=== PATIENT | female | born 1950 | race Caucasian/White ===

== ENCOUNTER → 2017-12-31 15:53 | Outpatient (CLI) | payer OTHER, MEDICARE, SELFPAY ==
[2017-12-31 17:06] LABS: Bacteria 0 SEEN /hpf (None Seen); Mucous, Urine 0 SEEN /hpf (<or=2+); Red Blood Cells-Urine 0 SEEN /hpf (0-5)
[2017-12-31 17:16] LABS: Color, Urine Straw (Yellow); Glucose, Dipstick Normal (Normal); Ketone-Dipstick Negative (Negative); Leukocyte Esterase-Dipstick 100 /ul (Negative); Nitrite-Dipstick Negative (Negative); Occult Blood-Urine 25 /ul (Negative); Protein-Dipstick Negative (Negative); Specific Gravity, Urine 1.005 (1.002-1.030); Urine Bilirubin Dipstick Negative (Negative); Urine Clarity Clear (Clear); Urine Urobilinogen Normal (Normal)
[2017-12-31 17:27] LABS: Squamous Epithelial Cells - UA 0-5 SEEN /hpf (5-10); White Blood Cells 0-5 SEEN /hpf (0-5)
== END ==
PROVIDERS: Visit Provider Physician Assistant Surgical
DX: N30.00 Acute cystitis without hematuria (principal)
CPT/HCPCS: 81001; 87086; 87088; 87186

== ENCOUNTER → 2019-07-28 14:26 | Outpatient (CLI) | payer MEDICARE, SELFPAY ==
[2019-07-28 10:05] VITALS: BMI 30.7
[2019-07-28 14:28] LABS: Mucous, Urine 0 SEEN /hpf (<or=2+)
[2019-07-28 15:23] LABS: Color, Urine Yellow (Yellow); Glucose, Dipstick Normal (Normal); Ketone-Dipstick 5 mg/dl (Negative); Leukocyte Esterase-Dipstick 500 /ul (Negative); Nitrite-Dipstick Positive (Negative); Occult Blood-Urine 250 /ul (Negative); Protein-Dipstick 30 mg/dl (Negative); Urine Bilirubin Dipstick Negative (Negative); Urine Clarity Cloudy (Clear); Urine Urobilinogen 1 mg/dl (Normal)
[2019-07-28 15:37] LABS: Bacteria 4+ /hpf (None Seen); Red Blood Cells-Urine 10-25 SEEN /hpf (0-5); Squamous Epithelial Cells - UA 0-5 SEEN /hpf (5-10); White Blood Cells 50-100 SEEN /hpf (0-5)
== END ==
PROVIDERS: Referring Provider Nurse Practitioner Family; Visit Provider Nurse Practitioner Family
DX: N30.01 Acute cystitis with hematuria (principal)
CPT/HCPCS: 81001; 87086; 87088; 87186

== ENCOUNTER → 2019-10-09 10:58 | Outpatient (CLI) | payer MEDICARE, SELFPAY ==
[2019-09-04 15:40] VITALS: BMI 30.9
--- NOTE | 2019-10-09 11:00 | MRI_ITS ---
STUDY: MRI RIGHT KNEE REASON FOR EXAM: Right knee pain for years, no specific injury. TECHNIQUE: Standardized fat and water weighted pulse sequences were obtained in all 3 orthogonal planes. COMPARISON: None. FINDINGS: There is tear/degeneration of the posterior horn and body of the medial meniscus (proton density sagittal images 29-36; proton density coronal images 13-17). There is peripheral subluxation of the medial meniscus. There is arthrosis of the medial femorotibial compartment with marginal osteophytes and chondral thinning (T2 sagittal image 17). There is slight subchondral bone edema of the medial femoral condyle and tibial plateau, a stress phenomenon. Normal medial collateral ligamentous complex (MCL). Normal distal semimembranosus, gracilis and semitendinosus tendons. There is a horizontal/oblique tear of the free margin of the body and anterior and posterior horns of the lateral meniscus (proton density sagittal images 8-11; proton density coronal images 12-17). Normal hyaline cartilage of the lateral femorotibial compartment. There are small marginal osteophytes of the lateral femoral condyle. Normal lateral femoral condyle and tibial plateau. Normal proximal tibiofibular articulation. Normal lateral collateral (fibular) ligament. Normal popliteus tendon. Normal biceps femoris tendon. Normal anterior cruciate ligament (ACL). Normal posterior cruciate ligament (PCL). Normal congruent patellofemoral articulation. Normal hyaline cartilage of the patellofemoral compartment. Normal medial and lateral patellar retinaculum. Normal quadriceps tendon. Normal patellar tendon. Normal Hoffa's fat pad. There is a very small joint effusion. There is a popliteal cyst measuring 8.1 cm in length (T2 sagittal images 13-20). There is mild prepatellar bursitis and edema in the anterior subcutis adipose space (T2 sagittal images 11-13). There is a ganglion cyst adjacent to the origin of the lateral gastrocnemius (T2 sagittal images 9, 10) measuring 1.6 cm in length. The otherwise visualized osseous structures are unremarkable. MRI/Lower Ext Joint Only (Routine) IMPRESSION: Tear/degeneration of the medial meniscus. Lateral meniscal tear. Arthrosis of the medial femorotibial compartment. Very small joint effusion. Popliteal cyst. Mild prepatellar bursitis. Small ganglion cyst adjacent to the origin of the lateral gastrocnemius. Electronically Signed: Edd Natarajan MD at 12:32 EST Tel , Service support ,
== END ==
PROVIDERS: Family Provider Family Medicine; PCP Family Medicine; Referring Provider Family Medicine; Visit Provider Family Medicine
DX: M25.561 Pain in right knee (principal)
CPT/HCPCS: 73721

== ENCOUNTER → 2019-10-29 13:23 | Outpatient (CLI) | payer MEDICARE, SELFPAY ==
[2019-10-29 13:14] VITALS: BMI 30.9
--- NOTE | 2019-10-29 13:24 | RAD_ITS ---
STUDY: X-RAY - RIGHT KNEE REASON FOR EXAM: Female, 69 years old. Chronic pain. TECHNIQUE: 4 view(s) of the knee. COMPARISON: None. FINDINGS: There is demineralization of the visualized distal femur. There is demineralization of the tibia and fibula. There is osteophytosis of the distal femur and proximal tibia, more significant medially. There is arthrosis of the proximal tibiofibular articulation. There is no demonstrated fracture. There is moderate to severe degenerative arthrosis of the medial femorotibial compartment with moderate joint space narrowing. There is mild degenerative arthrosis of the lateral femorotibial compartment. There is mild degenerative arthrosis of the patellofemoral articulation. There is trace amount of joint effusion. There is soft tissue swelling at the superior aspect of the knee. RAD/Knee 4 or More Views IMPRESSION: Diffuse osteopenia along with degenerative disease as described above. Electronically Signed: Siria Cabrales MD at 21:15 EST , Service support ,
== END ==
PROVIDERS: Family Provider Family Medicine; PCP Family Medicine; Referring Provider Orthopaedic Surgery; Visit Provider Orthopaedic Surgery
DX: M25.561 Pain in right knee (principal)
CPT/HCPCS: 73564

== ENCOUNTER 2019-11-27 12:47 | Observation (INO) | payer MEDICARE, SELFPAY ==
[2019-10-29 13:14] VITALS: BMI 30.9
[2019-11-19 09:24] VITALS: BP 129/90; PULSE 89; RESP 16; TEMP 36.7; O2SAT 95; BMI 29.8
--- NOTE | 2019-11-19 09:33 | SDCEKG_ITS ---
Test Reason : Blood Pressure : / mmHG Vent. Rate : 086 BPM Atrial Rate : 086 BPM P-R Int : 176 ms QRS Dur : 072 ms QT Int : 376 ms P-R-T Axes : 035 016 032 degrees QTc Int : 449 ms Normal sinus rhythm Normal ECG Confirmed by ZENOBIA SOLIZ, PRIMITIVO ([id number]), make up editor RAMONA MCCOLLUM ([id number]) on 11/22/2019 11:21:14 AM Referred By: Keegan Woods Confirmed By:PRIMITIVO FREGOSO MD
--- NOTE | 2019-11-26 14:23 | HP.PCM_ITS ---
History and Physical Date of Admission: 11/27/19 Intake Vital Signs 10/29/19 Body Mass Index (BMI) 30.9 Intake Visit Reasons: RIGHT KNEE Chief Complaint: Pain Rt Knee Accompanied by: Is patient in pain?: Yes Pain scale (1-10): 6 Allergies Penicillins Allergy (Severe, Verified 09/04/19 15:37) unknown sulfamethoxazole [From Bactrim] Allergy (Severe, Verified 09/04/19 15:37) Unknown trimethoprim [From Bactrim] Allergy (Severe, Verified 09/04/19 15:37) Unknown Medications linaclotide 72 mcg capsule 72 mcg PO QAM 12/31/17 [History Confirmed 10/29/19] omeprazole 20 mg capsule,delayed release PO 60 Days #60 12/31/17 [History Confirmed 10/29/19] hydrocortisone acetate 25 mg rectal suppository 25 mg RC DAILY PRN 09/04/19 [History Confirmed 10/29/19] meloxicam 15 mg tablet 15 mg PO DAILY #30 tab 09/04/19 [Rx Confirmed 10/29/19] PFSH Medical History (Updated 09/04/19 @ 15:32 by Caroline Clifford) Frequent headaches (Chronic) UTI (urinary tract infection) (Resolved) Arthritis (Chronic) Surgical History (Updated 09/04/19 @ 15:38 by Caroline Clifford) No history of previous surgery (Acute) Family History (Updated 09/04/19 @ 15:33 by Caroline Clifford) Aunt Breast cancer Daughter Cancer Mother Diabetes Father Parkinson disease Social History (Updated 10/29/19 @ 14:13 by Keegan Woods DO) Smoking Status: Never smoker alcohol intake: never substance use type: does not use what type of physical activity do you participate in: other details: Exercises for Knee HPI RIGHT KNEE: Chief Complaint: Referral from Dr. Hill right knee pain Details: Parts of this documentation were recorded by a scribe, this documentation accurately reflects the service provided and the decisions made by me, Keegan Woods DO 10/29/19 [id number]. KAYKAY MAC is a 69 year old F NEW patient here today for right knee pain. Referral from Dr. Elizabeth. Patient states she has been having right knee pain for 5 years. Denies any injury. Patient is having mostly medial sided knee pain. Denies numbness, tingling or other associated symptoms. Denies any painful mecha nical knee pain. Has had 2 steroid injections of her right knee the last injection was 03/2018 states that this injection was helpful for about 3 months. Denies any surgery of the right knee. SHe has done 2 weeks of PT in 2018 which was not helful. Patient has tried OTC knee sleeve which is more supportive. Patient has tried Aleve and Ibuprofen and Tylenol and she has tried Meloxicam. ROS Musc Reports joint pain, Reports joint swelling, Reports limited joint movement, Denies numbness, Reports stiffness, Denies tingling Skin/Breast Denies redness, Denies lesions, Denies itching, Denies rash Neuro No numbness, No tingling Ortho Exam Right Knee Skin/Wound: No erythema, No ecchymosis, No swelling Contralateral Normal: Yes Homans Sign: No Knee ROM: Yes ROM-Extension -20 to 0, No ROM-Flexion 0-140 (110) Examination: Yes Med jt line tenderness, No Lat jt line tenderness, No TTP Pes Anserine Stability: NML: Anterior Drawer, NML: Posterior Drawer, NML: Valgus 0, NML: Valgus 30, NML: Varus 30 Patella Grind: No KNEE: prominent varicose veins throughout the leg no joint effusion Supplemental Info 10/29/2019 x-ray right knee: [id number] medial compartment with varus deformity moderate patellofemoral spurring Assessment & Plan Problems 1. Primary osteoarthritis of right knee M17.11 Plan Obtained X-rays of patient's right knee. Personally reviewed x-rays. There is no obvious fracture, dislocation, or lucency noted. Patient educated that she does have bone on bone OA of her right knee. Personally reviewed patients MRI of the right knee. Patient educated that her treatment options are steroid injection or Zilretta injection or gel-injection or PT or bracing or right TKA. Educated that the recovery period for the knee replacement can be about 3 months. Educated that if she wishes to have injection today she will not be able to have the replacment for 3 months after the injection. Patient wishes to proceed with right TKA. Reviewed the pre-operative plans with the patient. Risks and benefits of the procedure were fully explained, including but not limited to infection, neurovascular injury, continued pain, arthritis, stiffness, need for further surgery, re-injury, DVT, PE, general risks of anesthesia, and loss of limb or life. Patient educated that i do not preform the surgery with a robotic arm at this time. Educated that we are doing Iovera tx in our office if she chooses. Educated that we will need a medical clearance from her PCP. Patient signed surgery consent today. Patient wishes to have her surgery 11/27/2019 she will call if she wishes to change her date. Follow up 2 weeks post op or sooner if pain, swelling, numbness or associated symptoms, or concerns develop. All questions answered. Patient in agreement of plan. Will forward a copy of this note to Dr. Hill thank you for this consultation Orders Orders: Knee 4 or More Views Today M25.561 Coding Level of Care Code 44665 Diagnoses Primary osteoarthritis of right knee M17.11 I have re-examined the patient. There are no clinical changes since date of exam
[2019-11-27] VITALS (13 sets, daily range): BP systolic 91–134; BP diastolic 57–90; PULSE 74–90; RESP 14–18; TEMP 36.2–37.2; O2SAT 93–100; BMI 29.8
[2019-11-27 08:41] LABS: Bedside Glucose 101 mg/dL (70-110)
[2019-11-27] MEDS: Lactated Ringers 1,000 ML 100 ML IV (09:03)
[2019-11-27] MEDS: Magnesium Sulfate 4gm/100mL 4 GM/100 ML IV.SOLN. IV (09:04)
[2019-11-27] MEDS: Acetaminophen 500 MG Tablet 1000 MG PO ×3 (09:05→21:26)
[2019-11-27] MEDS: Scopolamine 1mg/72hr Patch 1 PATCH TRANSDERM. (09:05)
[2019-11-27] MEDS: Gabapentin 600 MG Tablet PO (09:10)
[2019-11-27] MEDS: dexAMETHasone 10 MG/ML Vial IV (11:03)
[2019-11-27] MEDS: Epinephrine (1 mg/ml) 1 MG/ML VIAL (12:07)
[2019-11-27] MEDS: Bupivacaine 0.5% PF 10 ML VIAL (12:07)
[2019-11-27] MEDS: 0.9% Normal Saline (Pres. free 10 ML Vial (12:07)
[2019-11-27] MEDS: Betamethasone/Betamethasone 30 MG/5 ML Vial (12:07)
[2019-11-27] MEDS: Lactated Ringers 1,000 ML 125 ML IV ×2 (12:20→18:25)
--- NOTE | 2019-11-27 12:48 | RAD_ITS ---
STUDY: X-RAY - RIGHT KNEE REASON FOR EXAM: Female, 69 years old. POST OP TOTAL KNEE TECHNIQUE: 2 view(s) of the knee. COMPARISON: 10/29/2019 . FINDINGS: Patient status post right total knee arthroplasty. Postsurgical changes are noted. Hardware appears intact and well aligned. No acute fracture or dislocation is identified. RAD/Knee 1 or 2 Views IMPRESSION: Status post right total knee arthroplasty as above. Electronically Signed: Cj Riley, at 13:42 EST Tel , Service support ,
--- NOTE | 2019-11-27 12:53 | OP.PCM_ITS ---
Report of Operation Date of Procedure: 11/27/19 Description of Surgical Findings:: preoperative diagnosis: Right knee DJD Postoperative diagnosis: Same Procedure: Right total knee arthroplasty Implant: [employer] triathlon cemented right femoral component size 3, cemented tibial baseplate size 4, cemented asymmetric patella size 32, polyethylene X3 size 11 CS Anesthesia: Spinal with adductor canal block Tourniquet time: 65 minutes at 300 mmHg Complications: None Condition: Stable to PACU Estimated blood loss: 50 cc Indication for procedure: This is a 69-year-old female with long standing degenerative joint disease of the knee who has failed conservative treatment and wished to proceed with elective total knee arthroplasty. Risk benefits and alternatives were reviewed including; risk of bleeding, infection, nerve artery and tissue damage, continued pain, postoperative stiffness, venous thromboembolism, need for postoperative rehabilitation, mechanical feel to the knee, and expected postoperative course. Procedure: The patient was met in the preoperative holding area. The operative extremity was identified by both patient and physician and was marked. Patient was met by anesthesia. An adductor canal block was placed by anesthesia postoperatively the patient was brought back to the operating room on a wheeled cart and transferred to the operating table in the supine position. Anesthesia was started. A well-padded tourniquet was placed on the operative extremity. The patient was prepped and draped in the usual sterile fashion. A timeout was called to ensure the proper patient procedure and extremity were being contemplated. An Esmarch was used to exsanguinate the extremity. The t ourniquet was inflated. A 10 blade scalpel was used to make a midline incision down through the skin and subcutaneous tissue. Skin retractors placed. Bovie was used to perform meticulous hemostasis. full-thickness flaps were elevated medial and lateral along the joint capsule. A deep blade scalpel was used to perform a medial parapatellar arthrotomy. The knee was brought to full extension. A Bovie was used to release the soft tissues off the most proximal aspect of the medial tibial plateau a three-quarter inch curved osteotome was also used for this process. The infrapatellar fat pad was excised. The fat pad was excised partially anterior lateral portion the anterior medial was elevated from the femur. the patella was everted. The knee was brought into flexion. An intramedullary drill was used followed by flexible intramedullary guide pema. The distal femoral cutting block was placed and set to remove 10 mm of bone and 5 degrees of valgus. The block was secured with pins and an oscillating saw was used to complete the distal femoral cut. During this, and all bony cuts retractors were used to protect the collateral ligaments. At this point a femoral sizer was used to measure the AP dimension of the femur. The sizer block was pinned parallel to the epicondylar access for external rotation. The sizing block was removed and the appropriately sized 4-in-1 cutting block was placed over the previously made pinholes. It was checked with an kaden wing and the block was secured with pins. An oscillating saw was used to complete the anterior cut followed by the posterior cut followed by the posterior chamfer cut followed by the anterior chamfer cut. The block was removed as well as the fragments. A ronguer was used to remove excess osteophytes. The medial and l ateral meniscus were excised as well as the ACL. At this point a PCL retractor was placed and an intramedullary drill was passed down the tibial canal followed by a solid intramedullary guide pema. The tibial cutting block was attached and set to remove 9 mm of bone from the high side. This was checked with an external alignment drop pema for slope and tilt. It was pinned into place. An oscillating saw was used to complete the tibial plateau cut and the block was removed. A large osteotome was used to elevate the fragment and a Krissy and a Bovie were used to free the fragment from the surrounding soft tissue. A rongeur was once again used to remove osteophytes a lamina senior data warehouse developer was used to evaluate the posterior capsular structures. A three-quarter inch curved osteotome was used to remove posterior osteophytes. A spacer block was inserted in both extension and flexion to ensure adequate spacing. Trials were inserted full extension and flexion were achieved in varus and valgus stability throughout range of motion were seen, balancing techniques were performed. At this point the attention was turned towards the patella. A caliper was used to ensure sufficient bone stock to remove 10 mm of bone. A reamer was used to perform this task. Lug holes were made for the appropriate-sized patella. The patella trial was inserted and there was good patellar tracking with knee range of motion. The tibial baseplate was allowed to float into rotation and was marked on the tibial plateau with a Bovie. Lug holes were made in the femur and trials were removed. The tibial baseplate was then sized and its preparation was completed with a fin punch. The knee was thoroughly irrigated. A posterior capsular injection was performed with our standard cocktail. The knee was brou ght into flexion and irrigated again. The tibial baseplate was cemented. Excess cement was removed with curettes. The polyethylene component was inserted. The femoral component was cemented. The knee was brought into full extension and placed on a bump. The patellar component was cemented. At this point a Betadine rinse was placed and thoroughly irrigated after a few minutes. This was followed by an Iricept rinse which was allowed to sit for 1 minute and then thoroughly irrigated.At this point all gloves were changed. The knee was thoroughly irrigated the joint capsule was closed with #1 Ethibond. Tourniquet was let down followed by 0 Vicryl and 2-0 Vicryl in the subcutaneous tissues. followed by ken in the skin. Dressing was applied in the form of Mepilex silver dressing web roll and an Amrit wrap from the foot to the groin. The patient tolerated the procedure well, all counts were correct patient was brought back to the PACU in stable condition.
[2019-11-27] MEDS: Cefazolin 1 GM/50 ML BAG IV ×2 (13:42→21:25)
--- NOTE | 2019-11-27 15:51 | NURSING ---
Pt was assisted to the chair and is resting. She complaints of feeling lightheaded while at rest. Vs recorded and paged.
[2019-11-27 16:25] LABS: Hematocrit 40.7 % (37-47); Hemoglobin 13.2 g/dL (12.0-15.0)
[2019-11-27] MEDS: oxyCODONE 5 MG Tablet PO (17:23)
[2019-11-27] MEDS: Senna/Docusate Sodium 1 Tablet 2 TABLET PO (21:25)
[2019-11-27] MEDS: Ondansetron 4 MG/2 ML Vial IV (23:27)
[2019-11-28 00:20] VITALS: BP 115/62; PULSE 81; RESP 16; TEMP 36.6; O2SAT 93
--- NOTE | 2019-11-28 00:30 | NURSING ---
removed pt's scopolamine patch d/t COTTON and N/V. disposed of in sharps and washed pt's neck.
[2019-11-28] MEDS: Ketorolac 15 MG/ML Vial IV (02:34)
[2019-11-28] MEDS: 0.9% Saline Lock 10 ML Syringe IV ×2 (02:34→05:22)
[2019-11-28] MEDS: Lactated Ringers 1,000 ML 125 ML IV (02:40)
[2019-11-28 02:41] VITALS: BP 125/71; PULSE 73; RESP 16; TEMP 36.5; O2SAT 94
[2019-11-28] MEDS: Cefazolin 1 GM/50 ML BAG IV (05:23)
[2019-11-28] MEDS: Acetaminophen 500 MG Tablet 1000 MG PO ×2 (05:23→13:39)
--- NOTE | 2019-11-28 05:30 | NURSING ---
removed elizabet wrap and applied philip hose per order. pt has been up to brp and reports feeling much better than during night. pt denies nausea or headache.
[2019-11-28 06:06] LABS: Hematocrit 36.4 % (37-47); Hemoglobin 11.6 g/dL (12.0-15.0); Mean Corp Hgb Conc 31.9 g/dL (32-36); Mean Corpuscular Hgb 29.7 pg (27.0-32.0); Mean Corpuscular Volume 93.1 fL (81-99); Mean Platelet Vol. 9.6 fl (6.2-12.0); Platelet Count 188 K/mm3 (150-450); RBC Distribution Width CV 13.2 % (11.6-14.6); Red Blood Count 3.91 M/mm3 (4.2-5.4); White Blood Count 14.1 K/mm3 (4.4-11.0)
[2019-11-28 06:25] LABS: Anion Gap 5 (5-15); BUN 12 mg/dL (7-18); BUN/Creat Ratio 16.9 RATIO (10-20); Calcium,Total 8.7 mg/dL (8.5-10.1); Chloride 111 mmol/L (98-107); Creatinine, Serum 0.71 mg/dL (0.55-1.02); EST Glomerular Filtration Rate 87 mL/min (>60); Est Glom Filt Rate - Afr Amer 105 mL/min (>60); Estimated Creatinine Clearance 40.07 ml/min; Glucose 114 mg/dL (74-106); Potassium 4.3 mmol/L (3.5-5.1); Sodium Level 139 mmol/L (136-145)
[2019-11-28] MEDS: Linacolotide 145 MCG CAPSULE 290 MCG PO (06:45)
[2019-11-28] MEDS: APIXABAN 2.5 MG TABLET PO (06:46)
[2019-11-28 08:01] VITALS: BP 116/69; PULSE 86; RESP 18; TEMP 36.6; O2SAT 97
--- NOTE | 2019-11-28 08:13 | DCINST_ITS ---
Discharge Diet: No Restrictions Call your doctor if you observe: Fever of 101 or Higher, Shortness of breath Additional Instructions: Ice and elevate next week while not ambulating. Encourage ambulation weightbearing as tolerated. Encourage FULL knee extension and flexion 1 time EVERY time you get up and down and MULTIPLE times per day. Begin showering postop day #3. Remove the dressing prior to shower gently wash with warm water and antibacterial soap then pat dry place ABD pad and JESSICA hose over top. This is to be done daily. do not submerge for 3 weeks. If not showering daily must clean incision and change dressing daily. Do not allow animals near incision keep clean. Follow anticoagulation recommendations. Start physical therapy as directed in the hospital. call Dr. Woods with any concerns. Allergies/Adverse Reactions: Allergies Penicillins Allergy (Severe, Verified 11/27/19 08:40) rash reaction as young child, believes it was a rash sulfamethoxazole [From Bactrim] Allergy (Severe, Verified 11/27/19 08:40) Unknown trimethoprim [From Bactrim] Allergy (Severe, Verified 11/27/19 08:40) Unknown Medications to take at Discharge omeprazole 20 mg capsule,delayed release 20 mg PO DAILY 60 Days #60 12/31/17 hydrocortisone acetate 25 mg rectal suppository 25 mg RC DAILY PRN 09/04/19 Ascorbic Acid [Vitamin C] 125 mg PO DAILY 11/19/19 Cholecalciferol (VIT D3) [Vitamin D3] 1,000 unit PO DAILY 11/19/19 Linaclotide [Linzess] 290 mcg PO DAILY 11/19/19 Melatonin/Pyridoxine HCl (B6) [Melatonin Tr 10 mg Tablet] 1 ea PO QHS PRN 11/19/19 Acetaminophen [Tylenol] 1,000 mg PO Q6H PRN #100 tab 11/28/19 Apixaban [Eliquis] 2.5 mg PO BID #28 tab 11/28/19 Oxycodone [Oxyir] 5 - 10 mg PO Q4H PRN PRN #60 tablet 11/28/19 The following prescriptions were given: Apixaban [Eliquis] 2.5 mg PO BID #28 tab Transmission Status: Pending to [facility]/pharmacy #[id number] Oxycodone [Oxyir] 5 - 10 mg PO Q4H PRN PRN #60 tablet PRN Reason: Pain Score 4-10/10 Transmission Status: Received by [facility]pharmacy #[id number] Acetaminophen [Tylenol] 1,000 mg PO Q6H PRN #100 tab Transmission Status: Pending to [facility]pharmacy #[id number] Primary Care Physician: Yinka Hill DO [Primary Care Provider] - Test Results: Test results from this visit will be discussed in further detail at your follow- up appointment, if applicable. Please Follow Up With: Keegan Woods DO - 2 weeks
--- NOTE | 2019-11-28 08:14 | PCM.DC.SUM ---
Discharge Date and Diagnosis Date of Admission: 11/27/19 Date of Discharge: 11/28/19 - Secondary Discharge Diagnosis Chronic Problems (Last Reviewed 09/04/19 @ 15:46 by Yinka Hill DO) Frequent headaches (Chronic) Arthritis (Chronic) Hospital Course and Treatment Summary of Care Provided: The patient is a 69 year old F who has long history of degenerative joint disease to the knee who has failed conservative treatment and wished to undergo elective total knee arthroplasty. Patient underwent the aformentioned procedure on the admission date without any intraoperative complications. Patient did receive pre-and postoperative antibiotics which were discontinued within 23 hours postoperatively. Patient did receive [spinal anesthesia as well as an adductor canal block postoperatively]. pain was controlled with IV and transition to p.o. pain medication Patient will be discharged home with oxycodone and will continue Tylenol as well. Patient had minimal intraoperative blood loss and 2gm tranexamic acid was administered there was no need for postoperative blood transfusion Patients vital signs remained stable. Patient was started on both mechanical and chemical DVT per prophylaxis postoperatively in the form of SCDs JESSICA hose and [Eliquis 2.5 mg twice daily for which she will continue for 2 additional weeks post hospital discharge]. Amrit removed post op day number one and thigh high jessica hose placed over top of the meplix silver dressing. This should be removed 72 hrs post operatively and showering begun daily at that time with warm water and antibacterial soap. not to submerge for 3 weeks. To change dressing daily after first dressing change. Patient will follow-up in the office in 2 weeks. No intrahospital complications. Subjective: Nausea postoperative day of surgery as of this morning, low blood pressure yesterday resolved today after bolus feeling much better H&H stable vitals stable today - Physical Exam Vitals/I&O's: Vital Signs Temp Pulse Resp BP Pulse Ox 97.9 F 86 18 116/69 97 11/28/19 08:01 11/28/19 08:01 11/28/19 08:01 11/28/19 08:01 11/28/19 08:01 Oxygen Flow Rate (L/min) 6 Oxygen Delivery Method Room Air Weight: 157 lb 13.616 oz Body Mass Index (BMI) 29.8 Intake and Output for Last 24 Hours 11/26/19 11/27/19 11/28/19 23:59 23:59 23:59 Intake Total 3151 / 3595 1960.66 / 1960.66 Output Total 2300 / 2300 Balance 3151 / 1645 -339.34 / -339.34 General: Alert, Oriented x3, Cooperative, No apparent distress Extremities: - - Dressing clean dry and intact compartment soft neurovascular intact Laboratory Results 11/27/19 08:34: POC Glucose 101 11/27/19 16:15: Hgb 13.2, Hct 40.7 11/28/19 05:48: WBC 14.1 H, RBC 3.91 L, Hgb 11.6 L, Hct 36.4 L, MCV 93.1, MCH 29.7, MCHC 31.9 L, RDW Std Deviation 45.0 H, RDW Coeff of Joan 13.2, Plt Count 188, MPV 9.6 11/28/19 05:48: Sodium 139, Potassium 4.3, Chloride 111 H, Carbon Dioxide 23.0, Anion Gap 5, BUN 12, Creatinine 0.71, Estim Creat Clear Calc 40.07, Est GFR (MDRD) Af Amer 105, Est GFR (MDRD) Non-Af 87, BUN/Creatinine Ratio 16.9, Glucose 114 H, Calcium 8.7 Current Medications Acetaminophen (Tylenol) 1,000 mg PO Q8 [facility] Last Admin: 11/28/19 05:23 Dose: 1,000 mg Documented by: Apixaban (Eliquis) 2.5 mg PO BID [facility] Last Admin: 11/28/19 06:46 Dose: 2.5 mg Documented by: Hydromorphone HCl (Dilaudid Inj) 0.5 mg IV Q2H PRN PRN PRN Reason: .BREAKTHROUGH PAIN (>4/10) Ketorolac Tromethamine (Toradol) 15 mg IV Q6H PRN PRN PRN Reason: Pain Score 1-5/10 Stop: 11/29/19 12:48 Last Admin: 11/28/19 02:34 Dose: 15 mg Documented by: Linaclotide (Linzess) 290 mcg PO DAILY@0730 [facility] Last Admin: 11/28/19 06:45 Dose: 290 mcg Documented by: Melatonin (Melatonin) 10 mg PO QHS PRN PRN Reason: SLEEP Ondansetron HCl (Zofran) 4 mg IV Q6H PRN PRN PRN Reason: NAUSEA Last Admin: 11/27/19 23:27 Dose: 4 mg Documented by: Oxycodone HCl (Oxyir) 5 - 10 mg PO Q4H PRN PRN PRN Reason: Pain Score 4-10/10 Last Admin: 11/27/19 17:23 Dose: 5 mg Documented by: Pantoprazole Sodium (Protonix) 20 mg PO DAILY [facility] Senna/Docusate Sodium (Senokot-S, Sury-Colace) 2 tablet PO BID [facility] Last Admin: 11/27/19 21:25 Dose: 2 tablet Documented by: Sodium Chloride () 10 - 40 ml IV UD PRN PRN Reason: SALINE FLUSH Last Admin: 11/28/19 05:22 Dose: 10 ml Documented by: Discharge Diet: No Restrictions Call your doctor if you observe: Fever of 101 or Higher, Shortness of breath Home Medications: Medications to take at Discharge omeprazole 20 mg capsule,delayed release 20 mg PO DAILY 60 Days #60 12/31/17 hydrocortisone acetate 25 mg rectal suppository 25 mg RC DAILY PRN 09/04/19 Ascorbic Acid [Vitamin C] 125 mg PO DAILY 11/19/19 Cholecalciferol (VIT D3) [Vitamin D3] 1,000 unit PO DAILY 11/19/19 Linaclotide [Linzess] 290 mcg PO DAILY 11/19/19 Melatonin/Pyridoxine HCl (B6) [Melatonin Tr 10 mg Tablet] 1 ea PO QHS PRN 11/19/19 Acetaminophen [Tylenol] 1,000 mg PO Q6H PRN #100 tab 11/28/19 Apixaban [Eliquis] 2.5 mg PO BID #28 tab 11/28/19 Oxycodone [Oxyir] 5 - 10 mg PO Q4H PRN PRN #60 tablet 11/28/19 Following Prescrptions Were Given to Patient: Apixaban [Eliquis] 2.5 mg PO BID #28 tab Transmission Status: Pending to [id number] Oxycodone [Oxyir] 5 - 10 mg PO Q4H PRN PRN #60 tablet PRN Reason: Pain Score 4-10/10 Transmission Status: Received by [id number] Acetaminophen [Tylenol] 1,000 mg PO Q6H PRN #100 tab Transmission Status: Pending to [id number] Primary Care Physician: Yinka Hill DO [Primary Care Provider] - Please Follow Up With: Keegan Woods DO - 2 weeks Additional Instructions: Ice and elevate next week while not ambulating. Encourage ambulation weightbearing as tolerated. Encourage FULL knee extension and flexion 1 time EVERY time you get up and down and MULTIPLE times per day. Begin showering postop day #3. Remove the dressing prior to shower gently wash with warm water and antibacterial soap then pat dry place ABD pad and JESSICA hose over top. This is to be done daily. do not submerge for 3 weeks. If not showering daily must clean incision and change dressing daily. Do not allow animals near incision keep clean. Follow anticoagulation recommendations. Start physical therapy as directed in the hospital. call Dr. Woods with any concerns. Medical Necessity - Tobacco Use Smoking Status: Never smoker Tobacco Use: Non-smoker Meaningful Use Info Meaningful Use Diagnoses (Choose all that apply): None applicable
[2019-11-28] MEDS: Senna/Docusate Sodium 1 Tablet 2 TABLET PO (09:50)
[2019-11-28] MEDS: Pantoprazole Sodium 20 MG Tablet PO (09:50)
--- NOTE | 2019-11-28 09:50 | CASEMGMT ---
NEO SORIA Face to Face with patient for initial transition planning/care coordination assessment. RN YANG introduced self and role at [facility]. Patient sitting in chair, alert and oriented. Patient willing to participate in assessment and is able to answer all questions appropriately. Care providers, pharmacy, and demographics verified. Patient wishes to discharge home and is setup with Marilyn Lundberg for outpatient therapy. Patient states she has no further needs or concerns at this time. CM to follow for discharge planning needs that may arise. PCP: Sergio Specialists: heather Woods Preferred Pharmacy: [facility] [place] Insurance: [facility] Prescription Benefit: No Living Will/HPOA: none LNOK: Living Arrangements: Patient lives with in bi-level home with 7 steps and railing between levels. Patient independent at home prior to surgery. Transportation: , family DME/HHC: Patient has walker, cane, and raised toilet at home. Patient has outpatient therapy scheduled for Tuesday11/30/19. Disposition Plan: Patient to discharge home with outpatient therapy, family support, and follow-up plans in-place. Sofia MINER, RN, CM
--- NOTE | 2019-11-28 10:30 | CASEMGMT ---
NEO SORIA updated by therapy that patient will need new walker for at discharge as hers is borrowed and inappropriate height. NEO SORIA in to discuss need for new walker with patient. Patient agreeable to new walker, list of DME review and patient agreeable to [employer]. NEO SORIA sent request to Dr. Woods for script. Script received and referral sent to [employer] and arranged for walker to be delivered to patient's room prior to discharge.
--- NOTE | 2019-11-28 12:30 | CASEMGMT ---
[facility] here to deliver new walker to room. Walker is same size as walker patient already had. Patient will need Quiana FWW. New script received and faxed to [facility]. NEO SORIA called [facility] and they will deliver and exchange for quiana walker. NEO SORIA updated therapy and patient.
[2019-11-28 13:37] VITALS: BP 108/69; PULSE 85; RESP 18; TEMP 36.7; O2SAT 98
[2019-11-28] MEDS: oxyCODONE 5 MG Tablet PO (15:03)
[2019-11-28 15:05] VITALS: BP 112/78; PULSE 72; RESP 18; TEMP 36.7; O2SAT 99
== END 2019-11-28 15:30 | disposition home or self-care (01) ==
LOC: SDC 13:26 → MS3 13:26
PROVIDERS: Admitting Provider Orthopaedic Surgery; Family Provider Family Medicine; PCP Family Medicine; Referring Provider Orthopaedic Surgery; Visit Provider Orthopaedic Surgery
PROC: (CPT 27447; principal; 2019-11-27 09:50)
DX: M17.11 Unilateral primary osteoarthritis, right knee (principal); Z79.899 Other long term (current) drug therapy; F41.9 Anxiety disorder, unspecified; K21.9 Gastro-esophageal reflux disease without esophagitis; K58.9 Irritable bowel syndrome, unspecified
CPT/HCPCS: 27447; 64447; 36415; 73560; 80048; 82962; 85014; 85018; 85027; 87081; 93005; 96361; 96365; 96366; 96375; 97110; 97116; 97162; 97166; 97530; 97535; 97802; 99218; C1776; J7040; J7120; A4216; G0378; G0379; J0702; J2405; J3490

== ENCOUNTER → 2020-06-02 09:14 | Outpatient (CLI) | payer MEDICARE, OTHER, SELFPAY ==
[2020-06-02 07:56] VITALS: BMI 29.8
--- NOTE | 2020-06-02 09:30 | RAD_ITS ---
STUDY: X-RAY - RIGHT KNEE REASON FOR EXAM: Female, 69 years old. 4 WEEK TKA F/U TECHNIQUE: 4 view(s) of the knee. COMPARISON: Comparison is made with prior study dated November 27, 2019. FINDINGS: Normal visualized distal femur. Normal visualized proximal tibia and fibula. Normal proximal tibiofibular articulation. The patient is status post total knee replacement. There is good alignment. Persistent small joint effusion and soft tissue swelling. RAD/Knee 4 or More Views IMPRESSION: Stable total knee replacement. Persistent small joint effusion and soft tissue swelling Electronically Signed: John Garcia, at 9:45 EDT , Service support ,
== END ==
PROVIDERS: PCP Family Medicine; Referring Provider Orthopaedic Surgery; Visit Provider Orthopaedic Surgery
DX: M25.561 Pain in right knee (principal)
CPT/HCPCS: 73564

== ENCOUNTER 2021-01-29 13:39 | Outpatient (RCR) | payer MEDICARE, OTHER, SELFPAY ==
[2020-06-02 07:56] VITALS: BMI 29.8
[2021-01-29] MEDS: COVID-19 VACC, MRNA(PFIZER)/PF 30 MCG/0.3 ML SYRINGE IM (08:31)
[2021-02-19] MEDS: COVID-19 VACC, MRNA(PFIZER)/PF 30 MCG/0.3 ML SYRINGE IM (08:31)
== END 2021-04-28 23:59 ==
LOC: IMMUN 13:39
PROVIDERS: Visit Provider Family Medicine
DX: Z23 Encounter for immunization (principal)
CPT/HCPCS: 0001A; 0002A; 91300